=== PATIENT | male | born 1990 | race African-American/Black ===

== ENCOUNTER 2019-05-17 11:31 | Emergency (ER) | payer OTHER ==
[2019-05-17] MEDS: IBUPROFEN 600 MG TAB PO (12:35)
== END 2019-05-17 15:04 | disposition home or self-care (01) ==
LOC: FTE 11:31
DX: S93.602A Unspecified sprain of left foot, initial encounter (principal); J45.909 Unspecified asthma, uncomplicated; X50.1XXA Overexertion from prolonged static or awkward postures, initial encounter; Y92.9 Unspecified place or not applicable
CPT/HCPCS: 73610; 73630-LT; 99283-25